=== PATIENT | male | born 1990 | race African-American/Black ===

== ENCOUNTER 2018-09-15 08:11 | Observation (INO) ==
[2018-09-15] MEDS ORDERED: Sod Chloride 0.9% Inj 1,000 ML IV.SIG ONE (08:21)
[2018-09-15] MEDS ORDERED: Famotidine PF Inj 20 MG/2 ML Vial IV.PUSH ONE (08:21)
[2018-09-15] MEDS ORDERED: Morphine Inj 4 MG/ML Vial IV.PUSH ONE (08:21)
[2018-09-15] MEDS ORDERED: Hydrocortisone Sod Succinate 100 MG Vial IV.PUSH ONE (08:24)
--- NOTE | 2018-09-15 08:33 | ED ---
HPI General Chief Complaint: Abdominal Pain Stated Complaint: Abd Pain Time Seen by Provider: 09/15/18 08:20 Source: patient and EMS Mode of arrival: EMS Limitations: no limitations History of Present Illness HPI narrative: 28-year-old male complains of abdominal pain with nausea vomiting. Patient states that symptoms started 2 days ago. Patient states the pain is cramping pain sharp pain diffuse over the abdomen. Patient denies any pain radiation. Patient states that he has intermittent nausea vomiting with the pain. Patient denies any diarrhea. Patient denies dysuria frequency. Patient denies fever chills. Patient denies any back pain. 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 Patient denies any alcohol or drug abuse. Patient's mother states the patient has history of noncompliant with his medications. complaint: Reports abdominal pain Onset (ago): day(s) Pain Consistency: constant Location: Reports diffuse Severity: moderate Severity scale (1-10): 7 Quality: Reports cramping and sharp Radiation: Reports none Migration to: Reports no migration Relieving factors: nothing Exacerbating factors: nothing Associated symptoms: Reports nausea and vomiting Related Data Home Medications Medication Instructions Recorded Confirmed prednisone 1 mg PO DAILY 09/15/18 09/15/18 Allergies Allergy/AdvReac Type Severity Reaction Status Date / Time No Known Allergies Allergy Uncoded 02/20/12 02:07 Review of Systems ROS: all other systems reviewed are negative [facility] Medical History Medical History Ronan disease (Acute) Jason's disease (Acute) Social History Social History Substance History: No History of Abuse Second Hand Smoke Exposure: No Smoking Status: Never smoker How Often Do You Have a Drink Containing Alcohol: 2 to 4 times a month Recent Travel in [facility] within the Last 8 Weeks: No Recent Out of Country Travel within the Last 8 Weeks: No Immunization History Tetanus Immunization: <5 Years Exam Narrative Exam Narrative: GENERAL: Well-nourished, well-developed patient. SKIN: Focused skin assessment warm/dry. HEAD: Normocephalic. EYES: No scleral icterus. No injection or drainage. NECK: Supple, trachea midline. No JVD or lymphadenopathy. CARDIOVASCULAR: Regular rate and rhythm without murmurs, gallops, or rubs. RESPIRATORY: Breath sounds equal bilaterally. No accessory muscle use. GASTROINTESTINAL: Abdomen soft, nondistended. Patient has moderate tenderness diffuse over the abdomen no rebound tenderness. No mass. MUSCULOSKELETAL: No cyanosis, or edema. BACK: Nontender without obvious deformity. No CVA tenderness. Neurologic exam normal. Course Initial Documented Vital Signs Temperature 97.7 F 09/15/18 08:22 Pulse Rate 118 H 09/15/18 08:22 Respiratory Rate 18 09/15/18 08:22 Blood Pressure 110/59 L 09/15/18 08:22 Pulse Oximetry 99 09/15/18 08:22 Last Documented Vital Signs Temperature 97.7 F 09/15/18 08:22 Pulse Rate 118 H 09/15/18 08:22 Respiratory Rate 18 09/15/18 08:22 Blood Pressure 110/59 L 09/15/18 08:22 Pulse Oximetry 98 09/15/18 08:25 Medical Decision Making MDM Narrative Medical decision making narrative: 28-year-old male with diffuse abdominal pain , nausea vomiting. History of Elmore's disease and Jason. Normal saline solution 1 L IV bolus. Morphine 2 mg IV. Zofran 4 mg IV. Pepcid 20 mg IV. Hydrocortisone 100 mg IV. Synthroid 125 mcg p.o. given. Medical Screen Exam Complete: Yes Emergency Medical Condition: Yes Differential Diagnosis Differential Diagnosis: Differential diagnosis including gastroenteritis, gastritis, PUD, pancreatitis, cholecystitis, colitis, UTI, pyelonephritis, nephrolithiasis. Lab Data Lab results reviewed: Yes I reviewed the patient's lab results. Result diagrams: 09/15/18 08:25 09/15/18 08:25 Lab Results 09/15/18 09/15/18 09/15/18 Range/Units 08:25 08:25 08:25 WBC 17.6 H (4.0-11.0) th/mm3 RBC 5.53 (4.50-5.90) mil/mm3 Hgb 16.4 (13.0-17.0) gm/dL Hct 46.8 (39.0-51.0) % MCV 84.6 (80.0-100.0) fL MCH 29.6 (27.0-34.0) pg MCHC 34.9 (32.0-36.0) % RDW 13.0 (11.6-17.2) % Plt Count 165 (150-450) th/mm3 MPV 9.8 (7.0-11.0) fL Neut % (Auto) 63.7 (16.0-70.0) % Lymph % (Auto) 23.2 (9.0-44.0) % Stanton % (Auto) 10.3 H (0.0-8.0) % Eos % (Auto) 2.5 (0.0-4.0) % Baso % (Auto) 0.3 (0.0-2.0) % Neut # (Auto) 11.2 H (1.8-7.7) th/mm3 Lymph # (Auto) 4.1 (1.0-4.8) th/mm3 Stanton # (Auto) 1.8 H (0.0-0.9) th/mm3 Eos # (Auto) 0.4 (0.0-0.4) th/mm3 Baso # (Auto) 0.1 (0.0-0.2) th/mm3 WBC Differential . Differential Comment Auto diff final Sodium 130 L (136-145) meq/L Potassium 5.1 (3.5-5.1) meq/L Chloride 93 L (98-107) meq/L Carbon Dioxide 13.6 L (21.0-32.0) meq/L Anion Gap 23 H (5-15) meq/L BUN 36 H (7-18) mg/dL Creatinine 2.17 H (0.60-1.30) mg/dL Estimated GFR 44 L (>89) mL/min Random Glucose 107 H (74-106) mg/dL Calcium 9.7 (8.5-10.1) mg/dL Total Bilirubin 1.5 H (0.2-1.0) mg/dL AST 34 (15-37) U/L ALT 22 (12-78) U/L Alkaline Phosphatase 76 (45-117) U/L Total Protein 8.8 H (6.4-8.2) g/dL Albumin 4.6 (3.4-5.0) g/dL Lipase 85 (73-393) U/L TSH 54.800 H (0.358-3.740) uIU/mL Cortisol 2.2 mcg/dL Imaging Data Radiologist's impression: Abdomen/Pelvis CT 09/15/18 08:21 CONCLUSION: 1. 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 2. No acute CT findings in the abdomen or pelvis. Discharge Plan Discharge Disposition Patient Disposition: 30 Still Patient Discharge Details Diagnosis: Abdominal pain, Acute hyponatremia, Metabolic acidosis, Acute dehydration, Hypothyroidism Physicians Team ED Provider: Timoteo Hector Primary Care Provider: Primary Care NoaiEstefany Rxs /Orders / Referrals /Forms Prescriptions: No Action prednisone 1 mg Tablet 1 mg PO DAILY RF: 0 Discharge Interventions Interventions: Vital Signs Last Done: 09/15/18 08:22 Status ED Status: With Doctor
[2018-09-15 08:50] LABS: Baso # (Auto) 0.1 th/mm3 (0.0-0.2); Baso % (Auto) 0.3 % (0.0-2.0); Eos # (Auto) 0.4 th/mm3 (0.0-0.4); Eos % (Auto) 2.5 % (0.0-4.0); Hematocrit 46.8 % (39.0-51.0); Hemoglobin 16.4 gm/dL (13.0-17.0); Lymph # (Auto) 4.1 th/mm3 (1.0-4.8); Lymph % (Auto) 23.2 % (9.0-44.0); Mean Corpuscular HGB Conc 34.9 % (32.0-36.0); Mean Corpuscular Hemoglobin 29.6 pg (27.0-34.0); Mean Corpuscular Volume 84.6 fL (80.0-100.0); Mean Platelet Volume 9.8 fL (7.0-11.0); Mono # (Auto) 1.8 th/mm3 (0.0-0.9); Mono % (Auto) 10.3 % (0.0-8.0); Neut # (Auto) 11.2 th/mm3 (1.8-7.7); Neut % (Auto) 63.7 % (16.0-70.0); Platelet Count 165 th/mm3 (150-450); Red Blood Count 5.53 mil/mm3 (4.50-5.90); White Blood Count 17.6 th/mm3 (4.0-11.0)
[2018-09-15 09:10] LABS: Alanine Aminotransferase 22 U/L (12-78)
[2018-09-15 09:19] LABS: Alkaline Phosphatase 76 U/L (45-117); Total Protein 8.8 g/dL (6.4-8.2)
[2018-09-15 09:25] LABS: Albumin 4.6 g/dL (3.4-5.0); Anion Gap 23 meq/L (5-15); Blood Urea Nitrogen 36 mg/dL (7-18); Calcium 9.7 mg/dL (8.5-10.1); Carbon Dioxide 13.6 meq/L (21.0-32.0); Chloride 93 meq/L (98-107); Glomerular Filtration Rate 44 mL/min (>89); Glucose,Random 107 mg/dL (74-106); Lipase 85 U/L (73-393)
[2018-09-15 09:26] LABS: Aspartate Aminotransferase 34 U/L (15-37); Potassium 5.1 meq/L (3.5-5.1); Sodium 130 meq/L (136-145)
[2018-09-15] MEDS ORDERED: Sod Chloride 0.9% Inj 1,000 ML IV.CONT SCH (10:45)
--- NOTE | 2018-09-15 11:14 | CT ---
EXAM DATE: 09/15/2018 10:59 AM EDT AGE/SEX: 28 years / Male INDICATIONS: Abdomen pain, nausea and vomiting 3 days CLINICAL DATA: This is the patient's initial encounter. Patient reports that signs and symptoms have been present for 3 days and indicates a pain score of 7/10. MEDICAL/SURGICAL HISTORY: . Jason's disease, Ronan disease None. RADIATION DOSE: 6.64 CTDI (mGy) COMPARISON: No prior exams available for comparison. TECHNIQUE: Multiple contiguous axial images were obtained through the abdomen. Images were obtained using multiple row detector helical technique. Using automated exposure control and adjustment of the mA and/or kV according to patient size, radiation dose was kept as low as reasonably achievable to o btain optimal diagnostic quality images. DICOM format image data is available electronically for rev iew and comparison. FINDINGS: Lower Lungs: The visualized lower lungs are clear. Liver: The liver has a homogeneous density without space-occupying lesion. There is no dilation of th e biliary tree. Spleen: Homogeneous density without enlargement. Pancreas: Unremarkable without mass or calcification. Kidneys: Normal in size and shape. No evidence of mass or hydronephrosis. Adrenal Glands: Unremarkable. Aorta: The aorta and proximal iliac vessels are grossly unremarkable without aneurysmal dilation. Bowel/Mesentery: The bowel loops are grossly unremarkable. The cecum and sigmoid colon have a normal configuration. Abdominal Wall: Intact. Retroperitoneum: No evidence of adenopathy in the retrocrural, para-aortic, or deep pelvic regions. Bladder: Contours are smooth. Reproductive Organs: There is a soft tissue density structure in the left inguinal canal which looks like an undescended testicle Inguinal: Apparent incompletely descended testicle in the left inguinal canal Bony Structures: Unremarkable. CONCLUSION: 1. 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 2. No acute CT findings in the abdomen or pelvis. Electronically signed by: eTd Porras MD 09/15/2018 11:13 AM EDT
[2018-09-15] MEDS ORDERED: Levothyroxine 125 MCG Tablet PO ONE (12:29)
[2018-09-15] MEDS ORDERED: Acetaminophen 325 MG Tablet PO PRN (12:41)
--- NOTE | 2018-09-15 12:57 | P.HP ---
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 Patient presents emergency department with reported 3 days of nausea and vomiting associated with (7/10) diffuse cramping stabbing diffuse abdominal pain. Patient denies any pain radiation. Patient states that he has intermittent nausea vomiting with the pain. Bright red blood or coffee-ground emesis. Patient denies any diarrhea, dysuria, increased urinary frequency, fever/chills, back pain. Patient is supposed to be on levothyroxine and cortisone pill. Patient relocated to this area 2 years ago and has not established with an bartender server in this area. Patient reports he is not good with taking his medications. Patient reports that he often does not take his medication for weeks at a time. Patient is unable to recall his medications or dosages. Patient reports that he is feeling much better. He in sitting up on the edge of the bed eating lunch. WBC 17.6, Na 130, K 5.1, Carbon dioxide 13.6, Anion gap 23, BUN 36, Creatinine 2.17, Estimated GFR 44, total Bilirubin 1.5, TSH 54.8, Cortisol 2.2 CT abd/pelvis reviewed and reveals: 1. 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 2. No acute CT findings in the abdomen or pelvis. PMH: Calverton's disease and Jason's disease PSxH: left elbow pinned stitches above left eye FMH: reviewed and noncontributory Social history: rare ETOH use Denies current tobacco use quit smoking 1 month ago occasional THC use, denies other street drugs - Diagnosis (1) Metabolic acidosis (2) Abdominal pain (3) Acute hyponatremia (4) Acute dehydration (5) Hypothyroidism Review of Systems All other systems reviewed negative except as stated in HPI PMFSH - History History Provided By: Patient - Medical History Medical History: Medical History (Last Reviewed 09/15/18 @ 08:32 by Timoteo Hector MD) Ronan disease Jason's disease - Tobacco History Second Hand Smoke Exposure: No Tobacco Use In Past 30 Days: No Smoking Status: Never smoker - Alcohol History How Often Do You Have a Drink Containing Alcohol: 2 to 4 times a month - Substance Use History Substance History: No History of Abuse - Travel History Recent Travel in the [place] Within the Last 8 Weeks: No Recent Travel Out of the Country Within the Last 8 Weeks: No - Immunization History Tetanus Immunization: <5 Years Medications and Allergies Allergies Allergy/AdvReac Type Severity Reaction Status Date / Time No Known Allergies Allergy Uncoded 02/20/12 02:07 Home Medications Medication Instructions Recorded Confirmed Type fludrocortisone 0.1 mg PO DAILY 09/15/18 09/15/18 History levothyroxine 88 mcg PO DAILY 09/15/18 09/15/18 History prednisone 5 mg PO DAILY 09/15/18 09/15/18 History Active Medications: Active Medications Acetaminophen (Tylenol) 650 mg PO Q4H PRN PRN Reason: Temp > 100.4 Al Hydroxide/Mg Hydroxide (Milk Of Magnesia Liq) 30 ml PO Q12H PRN PRN Reason: Mild Constipation Sodium Chloride (Ns Inj) 1,000 mls @ 125 mls/hr IV.CONT .Q8H BRYNN Last Admin: 09/15/18 10:33 Dose: 125 mls/hr Ondansetron HCl (Zofran Inj) 4 mg IV.PUSH Q6H PRN PRN Reason: NAUSEA OR VOMITING Senna/Docusate Sodium (Nena-Colace) 1 tab PO BID BRYNN Temazepam (Restoril) 15 mg PO HS PRN PRN Reason: INSOMNIA Exam Vital signs: Vital Signs 09/15/18 08:22 09/15/18 08:25 Temperature 97.7 F Pulse Rate 118 H Respiratory Rate 18 Blood Pressure 110/59 L Pulse Oximetry 99 98 Intake & Output 09/14/18 09/15/18 09/15/18 18:59 06:59 18:59 Weight 63.503 kg Narrative: GENERAL: This is an extremely thin, well-developed patient, in no apparent distress. CARDIOVASCULAR: Regular rate and rhythm RESPIRATORY: Clear to auscultation. Breath sounds equal bilaterally. GASTROINTESTINAL: Abdomen soft, nondistended. Patient has mild tenderness diffuse over the abdomen no rebound tenderness. MUSCULOSKELETAL: Extremities without clubbing, cyanosis, or edema. NEURO: Alert & Oriented x4 to person, place, time, situation. Moves all ext x4 Results - Labs CBC & Chem 7: 09/15/18 08:25 09/15/18 08:25 Labs: Laboratory Results - last 24 hr 09/15/18 09/15/18 09/15/18 08:25 08:25 08:25 WBC 17.6 H RBC 5.53 Hgb 16.4 Hct 46.8 MCV 84.6 MCH 29.6 MCHC 34.9 RDW 13.0 Plt Count 165 MPV 9.8 Neut % (Auto) 63.7 Lymph % (Auto) 23.2 Kane % (Auto) 10.3 H Eos % (Auto) 2.5 Baso % (Auto) 0.3 Neut # (Auto) 11.2 H Lymph # (Auto) 4.1 Kane # (Auto) 1.8 H Eos # (Auto) 0.4 Baso # (Auto) 0.1 WBC Differential . Differential Comment Auto diff final Sodium 130 L Potassium 5.1 Chloride 93 L Carbon Dioxide 13.6 L Anion Gap 23 H BUN 36 H Creatinine 2.17 H Estimated GFR 44 L Random Glucose 107 H Calcium 9.7 Total Bilirubin 1.5 H AST 34 ALT 22 Alkaline Phosphatase 76 Total Protein 8.8 H Albumin 4.6 Lipase 85 TSH 54.800 H Cortisol 2.2 - Imaging Impressions Abdomen/Pelvis CT 09/15/18 08:21 CONCLUSION: 1. 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 2. No acute CT findings in the abdomen or pelvis. Caprini VTE Risk Assessment Caprini VTE Risk Assessment: No/Low Risk (score <= 1) Caprini Risk Assessment Model: Point Value = 1 Point Value = 2 Point Value = 3 Point Value = 5 Age 41-60 Minor surgery BMI > 25 kg/m2 Swollen legs Varicose veins or History of unexplained or recurrent spontaneous Oral contraceptives or hormone replacement Sepsis (< 1 month) Serious lung disease, including pneumonia (< 1 month) Abnormal pulmonary function Acute myocardial infarction Congestive heart failure (< 1 month) History of inflammatory bowel disease Medical patient at bed rest Age 61-74 Arthroscopic surgery Major open surgery (> 45 min) Laparoscopic surgery (> 45 min) Malignancy Confined to bed (> 72 hours) Immobilizing plaster cast Central venous access Age >= 75 History of VTE Family history of VTE Factor V Leiden Prothrombin [id number] Lupus anticoagulant Anticardiolipin antibodies Elevated serum homocysteine Heparin-induced thrombocytopenia Other congenital or acquired thrombophilia Stroke (< 1 month) Elective arthroplasty Hip, pelvis, or leg fracture Acute spinal cord injury (< 1 month) Prophylaxis Regimen: Total Risk Factor Score Risk Level Prophylaxis Regimen 0-1 Low Early ambulation 2 Moderate Order ONE of the following: *Sequential Compression Device (SCD) *Heparin 5000 units SQ BID 3-4 Higher Order ONE of the following medications: *Heparin 5000 units SQ TID *Enoxaparin/Lovenox 40 mg SQ daily (WT < 150 kg, CrCl > 30 mL/min) *Enoxaparin/Lovenox 30 mg SQ daily (WT < 150 kg, CrCl > 10-29 mL/min) *Enoxaparin/Lovenox 30 mg SQ BID (WT < 150 kg, CrCl > 30 mL/min) AND/OR *Sequential Compression Device (SCD) 5 or more Highest Order ONE of the following medications: *Heparin 5000 units SQ TID (Preferred with Epidurals) *Enoxaparin/Lovenox 40 mg SQ daily (WT < 150 kg, CrCl > 30 mL/min) *Enoxaparin/Lovenox 30 mg SQ daily (WT < 150 kg, CrCl > 10-29 mL/min) *Enoxaparin/Lovenox 30 mg SQ BID (WT < 150 kg, CrCl > 30 mL/min) AND *Sequential Compression Device (SCD) Assessment and Plan - Assessment (1) Metabolic acidosis Code(s): E87.2 - Acidosis Status: Acute Plan: This a 28-year-old male patient with a 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 Patient presents emergency department with reported 3 days of nausea and vomiting associated with (7/10) diffuse cramping stabbing diffuse abdominal pain. Patient denies any pain radiation. Patient states that he has intermittent nausea vomiting with the pain. Bright red blood or coffee-ground emesis. Patient denies any diarrhea, dysuria, increased urinary frequency, fever/chills, back pain. Patient is supposed to be on levothyroxine and cortisone pill. Patient relocated to this area 2 years ago and has not established with an bartender server in this area. Patient reports he is not good with taking his medications. Patient reports that he often does not take his medication for weeks at a time. Patient is unable to recall his medications or dosages. Patient reports that he is feeling much better. He in sitting up on the edge of the bed eating lunch. Metabolic Acidosis N/V Abd pain ? gastroenteritis tox screen flu screen UA pending WBC 17.6, Na 130, K 5.1, Carbon dioxide 13.6, Anion gap 23, BUN 36, Creatinine 2.17, Estimated GFR 44, total Bilirubin 1.5, TSH 54.8, Cortisol 2.2 CT abd/pelvis reviewed and reveals: 1. 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 2. No acute CT findings in the abdomen or pelvis. NS sodium bicarb at 125 ml/H Supportive care recheck CBC and CMP in AM Hyponatremia Na 130 likely secondary to N/V recheck in AM DENISE Dehydration likely related to dehydration IVF recheck in AM Jason disease Patient is noncompliance with medications. Patient reports he is suppose to take a, "thyroid medication," but is not sure of the name or dose. Patient endorses that he has not been taking his, "thyroid medication." TSH 54.8 Patient given Levothyroxine 125mcg PO in the ER patient started on home Levothyroxine 88 mcg daily Calverton's disease with acute illness Patient is noncompliance with medications. Patient reports he is suppose to take a prednisone 1 mg PO daily, but is often noncompliant. Patient given Solucortef 100mg IV x 1 in ER Continue patient's home prednisone 5 mg PO daily and fludrocortisone 1 mg PO daily Incompletely descended testicle CT abd/pelvis reviewed and reveals: 1. 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 2. No acute CT findings in the abdomen or pelvis. Patient will need outpatient follow up with Urology DVT prophylaxis with SCDs (2) Abdominal pain Code(s): R10.9 - Unspecified abdominal pain Status: Acute (3) Acute hyponatremia Code(s): E87.1 - Hypo-osmolality and hyponatremia Status: Acute (4) Acute dehydration Code(s): E86.0 - Dehydration Status: Acute (5) Hypothyroidism Code(s): E03.9 - Hypothyroidism, unspecified Status: Acute <Lalo Burgess - Last Filed: 09/15/18 15:51> History of Present Illness Primary Care Physician: No Primary Care Physician - Diagnosis (1) Metabolic acidosis (2) Abdominal pain (3) Acute hyponatremia (4) Acute dehydration (5) Hypothyroidism [facility] - Medical History Medical History: Medical History (Last Reviewed 09/15/18 @ 08:32 by Timoteo Hector MD) Calverton disease Jason's disease Medications and Allergies Active Medications: Active Medications Acetaminophen (Tylenol) 650 mg PO Q4H PRN PRN Reason: Temp > 100.4 Hydrocodone Bitart/Acetaminophen ([place] 5/325) 1 tab PO Q4H PRN PRN Reason: PAIN SCALE 1 TO 10 Last Admin: 09/15/18 13:13 Dose: 1 tab Al Hydroxide/Mg Hydroxide (Milk Of Magnyonis Linahed) 30 ml PO Q12H PRN PRN Reason: Mild Constipation Fludrocortisone Acetate (Florinef) 0.1 mg PO DAILY [facility] Sodium Chloride (Ns Inj) 1,000 mls @ 125 mls/hr IV.CONT .Q8H [facility] Last Admin: 09/15/18 15:21 Dose: 125 mls/hr Sodium Bicarbonate 100 meq/ (Sodium Chloride) 1,000 mls @ 125 mls/hr IV.CONT .Q8H [facility] Last Admin: 09/15/18 13:32 Dose: 125 mls/hr Levothyroxine Sodium (Synthroid) 88 mcg PO DAILY@0600 [facility] Ondansetron HCl (Zofran Inj) 4 mg IV.PUSH Q6H PRN PRN Reason: NAUSEA OR VOMITING Prednisone (Deltasone) 5 mg PO DAILY [facility] Senna/Docusate Sodium (Nena-Colace) 1 tab PO BID BRYNN Temazepam (Restoril) 15 mg PO HS PRN PRN Reason: INSOMNIA Exam Vital signs: Vital Signs 09/15/18 08:22 09/15/18 08:25 09/15/18 13:13 Temperature 97.7 F Pulse Rate 118 H 104 H Respiratory Rate 18 18 Blood Pressure 110/59 L 111/65 Pulse Oximetry 99 98 99 09/15/18 14:33 09/15/18 15:30 Temperature 98.6 F Pulse Rate 84 Respiratory Rate 18 16 Blood Pressure 106/70 Pulse Oximetry 100 Intake & Output 09/14/18 09/15/18 09/15/18 18:59 06:59 18:59 Intake Total 1500 / 1500 Balance 1500 / 1500 Weight 63.503 kg Intake: IV 1000 / 1000 NS Inj 1,000 ML @ Wide Open IV. 1000 / 1000 SIG BOLUS ONE Rx#:[id number] Oral 500 / 500 Results - Labs CBC & Chem 7: 09/15/18 08:25 09/15/18 08:25 Labs: Laboratory Results - last 24 hr 09/15/18 09/15/18 09/15/18 08:25 08:25 08:25 WBC 17.6 H RBC 5.53 Hgb 16.4 Hct 46.8 MCV 84.6 MCH 29.6 MCHC 34.9 RDW 13.0 Plt Count 165 MPV 9.8 Neut % (Auto) 63.7 Lymph % (Auto) 23.2 Kane % (Auto) 10.3 H Eos % (Auto) 2.5 Baso % (Auto) 0.3 Neut # (Auto) 11.2 H Lymph # (Auto) 4.1 Kane # (Auto) 1.8 H Eos # (Auto) 0.4 Baso # (Auto) 0.1 WBC Differential . Differential Comment Auto diff final Sodium 130 L Potassium 5.1 Chloride 93 L Carbon Dioxide 13.6 L Anion Gap 23 H BUN 36 H Creatinine 2.17 H Estimated GFR 44 L Random Glucose 107 H Calcium 9.7 Total Bilirubin 1.5 H AST 34 ALT 22 Alkaline Phosphatase 76 Total Protein 8.8 H Albumin 4.6 Lipase 85 TSH 54.800 H Cortisol 2.2 Urine Opiates Screen Ur Barbiturates Screen Ur Amphetamines Screen U Benzodiazepines Scrn Urine Cocaine Screen U Cannabinoids Screen 09/15/18 13:16 WBC RBC Hgb Hct MCV MCH MCHC RDW Plt Count MPV Neut % (Auto) Lymph % (Auto) Kane % (Auto) Eos % (Auto) Baso % (Auto) Neut # (Auto) Lymph # (Auto) Kane # (Auto) Eos # (Auto) Baso # (Auto) WBC Differential Differential Comment Sodium Potassium Chloride Carbon Dioxide Anion Gap BUN Creatinine Estimated GFR Random Glucose Calcium Total Bilirubin AST ALT Alkaline Phosphatase Total Protein Albumin Lipase TSH Cortisol Urine Opiates Screen Neg Ur Barbiturates Screen Neg Ur Amphetamines Screen Neg U Benzodiazepines Scrn Neg Urine Cocaine Screen Neg U Cannabinoids Screen Pos H - Imaging Impressions Chest X-Ray 09/15/18 00:00 CONCLUSION: Questionable small area of atelectasis or bronchitis in the right upper lobe overlying the right fifth rib. The rest of the lungs are clear Abdomen/Pelvis CT 09/15/18 08:21 CONCLUSION: 1. 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 2. No acute CT findings in the abdomen or pelvis. Caprini VTE Risk Assessment Caprini Risk Assessment Model: Point Value = 1 Point Value = 2 Point Value = 3 Point Value = 5 Age 41-60 Minor surgery BMI > 25 kg/m2 Swollen legs Varicose veins or History of unexplained or recurrent spontaneous Oral contraceptives or hormone replacement Sepsis (< 1 month) Serious lung disease, including pneumonia (< 1 month) Abnormal pulmonary function Acute myocardial infarction Congestive heart failure (< 1 month) History of inflammatory bowel disease Medical patient at bed rest Age 61-74 Arthroscopic surgery Major open surgery (> 45 min) Laparoscopic surgery (> 45 min) Malignancy Confined to bed (> 72 hours) Immobilizing plaster cast Central venous access Age >= 75 History of VTE Family history of VTE Factor V Leiden Prothrombin [id number] Lupus anticoagulant Anticardiolipin antibodies Elevated serum homocysteine Heparin-induced thrombocytopenia Other congenital or acquired thrombophilia Stroke (< 1 month) Elective arthroplasty Hip, pelvis, or leg fracture Acute spinal cord injury (< 1 month) Prophylaxis Regimen: Total Risk Factor Score Risk Level Prophylaxis Regimen 0-1 Low Early ambulation 2 Moderate Order ONE of the following: *Sequential Compression Device (SCD) *Heparin 5000 units SQ BID 3-4 Higher Order ONE of the following medications: *Heparin 5000 units SQ TID *Enoxaparin/Lovenox 40 mg SQ daily (WT < 150 kg, CrCl > 30 mL/min) *Enoxaparin/Lovenox 30 mg SQ daily (WT < 150 kg, CrCl > 10-29 mL/min) *Enoxaparin/Lovenox 30 mg SQ BID (WT < 150 kg, CrCl > 30 mL/min) AND/OR *Sequential Compression Device (SCD) 5 or more Highest Order ONE of the following medications: *Heparin 5000 units SQ TID (Preferred with Epidurals) *Enoxaparin/Lovenox 40 mg SQ daily (WT < 150 kg, CrCl > 30 mL/min) *Enoxaparin/Lovenox 30 mg SQ daily (WT < 150 kg, CrCl > 10-29 mL/min) *Enoxaparin/Lovenox 30 mg SQ BID (WT < 150 kg, CrCl > 30 mL/min) AND *Sequential Compression Device (SCD) Assessment and Plan - Assessment (1) Metabolic acidosis Code(s): E87.2 - Acidosis Status: Acute (2) Abdominal pain Code(s): R10.9 - Unspecified abdominal pain Status: Acute (3) Acute hyponatremia Code(s): E87.1 - Hypo-osmolality and hyponatremia Status: Acute (4) Acute dehydration Code(s): E86.0 - Dehydration Status: Acute (5) Hypothyroidism Code(s): E03.9 - Hypothyroidism, unspecified Status: Acute - Attending Attestation The exam, history, and the medical decision-making described in the above note were completed with the assistance of the mid-level provider. I reviewed and agree with the findings presented. I attest that I had a [id number] encounter with the patient on the same day, and personally performed and documented my assessment and findings in the medical record. Patient examined. Assessment and plan formulated with Rizwana Recio PA-C. I agree with the above. Case d/w pt at bedside. Mr. Echevarria does NOT regularly take his medications. Pt's father provided name & doses of previously prescribed medications. Pt has NOT established himself with a PCP or Hydraulic Rock[employer] Operator since moving to [facility] from [facility] 2 years ago. Previous medications resumed. IVFs overnight. If electrolytes/CO2/renal fxn normalize on AM labs, then pt will be discharged to home 09/16/18 Pt needs to establish with an Hydraulic Rockbreaker Operator locally & this was d/w Mr. Echevarria. 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
[2018-09-15] MEDS: Sodium Bicarbonate 8.4% Inj 100 MEQ in Sod Chloride 0.9% Inj 900 ML IV.CONT SCH ×2 (13:32→22:34)
[2018-09-15 13:41] LABS: Amphetamine Screen,Urine Neg (Neg); Barbiturate Screen,Urine Neg (Neg); Cannabinoid Screen,Urine Pos (Neg); Cocaine Screen,Urine Neg (Neg)
[2018-09-15 13:46] LABS: Opiate Screen,Urine Neg (Neg)
--- NOTE | 2018-09-15 13:46 | XR ---
EXAM DATE: 09/15/2018 1:33 PM EDT AGE/SEX: 28 years / Male INDICATIONS: Cough CLINICAL DATA: This is the patient's initial encounter. Patient reports that signs and symptoms have been present for 1 day and indicates a pain score of 0/10. MEDICAL/SURGICAL HISTORY: . Jason's disease, Ronan disease None. COMPARISON: [facility] [place]ST SINGLE AP, 02/20/2012. . FINDINGS: A single AP view of the chest demonstrates the lungs to be symmetrically aerated without evidence of mass, or effusion. Small flattened area consolidation in the right upper lobe could be a small area o f bronchitis. The cardiomediastinal contours are unremarkable. Osseous structures are intact. CONCLUSION: Questionable small area of atelectasis or bronchitis in the right upper lobe overlying the right fift h rib. The rest of the lungs are clear Electronically signed by: Yao Field MD 09/15/2018 1:44 PM EDT
[2018-09-15] MEDS: Sod Chloride 0.9% Inj 1,000 ML IV.CONT SCH ×3 (15:21→22:35)
[2018-09-15 20:18] LABS: Bilirubin,Urine Negative (Negative); Clarity,Urine Clear (Clear); Color,Urine Straw (Yellw/Straw); Glucose,Urine (UA) Negative (Negative); Leukocyte Esterase,Urine Negative (Negative); Nitrite,Urine Negative (Negative)
[2018-09-15] MEDS ORDERED: Temazepam 15 MG Capsule PO PRN (21:00)
[2018-09-15] MEDS: Senna/Docusate Sodium 8.6/50 MG Tablet PO SCH (21:43)
[2018-09-16] MEDS: Sod Chloride 0.9% Inj 1,000 ML IV.CONT SCH (03:52)
[2018-09-16 05:38] LABS: Baso % (Auto) 0.2 % (0.0-2.0); Eos # (Auto) 0.3 th/mm3 (0.0-0.4); Eos % (Auto) 2.5 % (0.0-4.0); Hematocrit 32.8 % (39.0-51.0); Hemoglobin 11.7 gm/dL (13.0-17.0); Lymph # (Auto) 1.9 th/mm3 (1.0-4.8); Lymph % (Auto) 19.3 % (9.0-44.0); Mean Corpuscular HGB Conc 35.8 % (32.0-36.0); Mean Corpuscular Hemoglobin 29.6 pg (27.0-34.0); Mean Corpuscular Volume 82.9 fL (80.0-100.0); Mean Platelet Volume 9.7 fL (7.0-11.0); Mono # (Auto) 1.1 th/mm3 (0.0-0.9); Mono % (Auto) 11.4 % (0.0-8.0); Neut # (Auto) 6.6 th/mm3 (1.8-7.7); Neut % (Auto) 66.6 % (16.0-70.0); Platelet Count 116 th/mm3 (150-450); Red Blood Count 3.96 mil/mm3 (4.50-5.90); White Blood Count 9.8 th/mm3 (4.0-11.0)
[2018-09-16] MEDS ORDERED: Levothyroxine 88 MCG Tablet PO SCH (06:00)
[2018-09-16 06:11] LABS: Alanine Aminotransferase 15 U/L (12-78); Albumin 3.3 g/dL (3.4-5.0); Anion Gap 8 meq/L (5-15); Aspartate Aminotransferase 18 U/L (15-37); Blood Urea Nitrogen 18 mg/dL (7-18); Calcium 7.8 mg/dL (8.5-10.1); Chloride 102 meq/L (98-107); Glomerular Filtration Rate Greater Than 89 mL/min (>89); Glucose,Random 131 mg/dL (74-106); Potassium 3.6 meq/L (3.5-5.1); Sodium 135 meq/L (136-145)
[2018-09-16 06:16] LABS: Alkaline Phosphatase 52 U/L (45-117); Total Protein 6.3 g/dL (6.4-8.2)
[2018-09-16] MEDS: Sodium Bicarbonate 8.4% Inj 100 MEQ in Sod Chloride 0.9% Inj 900 ML IV.CONT SCH (07:54)
--- NOTE | 2018-09-16 08:01 | P.DS ---
Documented by User: DANY Santana 09/16/18 10:02 DS: Providers Date of admission: 09/15/18 13:14 Primary care physician: Dr. 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 Patient presents emergency department with reported 3 days of nausea and vomiting associated with (05/28) diffuse cramping stabbing diffuse abdominal pain. Patient denies any pain radiation. Patient states that he has intermittent nausea vomiting with the pain. Bright red blood or coffee-ground emesis. Patient denies any diarrhea, dysuria, increased urinary frequency, fever/chills, back pain. Patient is supposed to be on levothyroxine and cortisone pill. Patient relocated to this area 2 years ago and has not established with an seam taper machine in this area. Patient reports he is not good with taking his medications. Patient reports that he often does not take his medication for weeks at a time. Patient is unable to recall his medications or dosages. Patient reports that he is feeling much better. He in sitting up on the edge of the bed eating lunch. Metabolic Acidosis - resolved N/V - resolved Abd pain - resolved ? gastroenteritis tox screen - positive for cannabinoids flu screen UA pending - negative nitrates, negative leukocyte Esterase, no culture indicated WBC 17.6, Na 130, K 5.1, Carbon dioxide 13.6, Anion gap 23, BUN 36, Creatinine 2.17, Estimated GFR 44, total Bilirubin 1.5, TSH 54.8, Cortisol 2.2 repeat labs this AM (09/16) - WBC 9.8, Na 135, K 3.6, carbon dioxide 25.0, anion gap 8, BUN 18, creatinine 1.08, estimated GFR 89, total bilirubin 1.0 CT abd/pelvis reviewed and reveals: 1. 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 2. No acute CT findings in the abdomen or pelvis. NS sodium bicarb at 125 ml/H initially then DC'd 09/16 Hyponatremia - resolved Na 130 -> 135 likely secondary to N/V DENISE - improving Dehydration likely related to dehydration IVF - initially Jason disease Patient is noncompliance with medications. Patient reports he is suppose to take a, "thyroid medication," but is not sure of the name or dose. Patient endorses that he has not been taking his, "thyroid medication." TSH 54.8 Patient given Levothyroxine 125mcg PO in the ER patient started on home Levothyroxine 88 mcg daily [place]ao's disease with acute illness Patient is noncompliance with medications. Patient reports he is suppose to take a prednisone 1 mg PO daily, but is often noncompliant. Patient given Solucortef 100mg IV x 1 in ER Continue patient's home prednisone 5 mg PO daily and fludrocortisone 1 mg PO daily Incompletely descended testicle CT abd/pelvis reviewed and reveals: 1. 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 2. No acute CT findings in the abdomen or pelvis. Patient will need outpatient follow up with Urology DVT prophylaxis with SCDs Patient no longer having N/V or abd pain. Patient reports feeling much better today. Feels ready to go home. Time Spent with Patient Total time spent providing and/or coordinating discharge services: Quality: VTE Deep Vein Thrombosis/Pulmonary Embolism Present on Admission: No Exam Narrative Exam Narrative: GENERAL: This is an extremely thin, well-developed patient, in no apparent distress. CARDIOVASCULAR: Regular rate and rhythm RESPIRATORY: Clear to auscultation. Breath sounds equal bilaterally. GASTROINTESTINAL: Abdomen soft, nondistended. non-tender no rebound tenderness. MUSCULOSKELETAL: Extremities without clubbing, cyanosis, or edema. NEURO: Alert & Oriented x4 to person, place, time, situation. Moves all ext x4 DS: Data Labs on day of discharge: Labs from last 24 hours 09/16/18 09/16/18 09/15/18 04:15 04:15 18:45 WBC 9.8 RBC 3.96 L Hgb 11.7 L D Hct 32.8 L MCV 82.9 MCH 29.6 MCHC 35.8 RDW 13.0 Plt Count 116 L MPV 9.7 Neut % (Auto) 66.6 Lymph % (Auto) 19.3 [place] % (Auto) 11.4 H Eos % (Auto) 2.5 Baso % (Auto) 0.2 Neut # (Auto) 6.6 Lymph # (Auto) 1.9 [place]linger # (Auto) 1.1 H Eos # (Auto) 0.3 Baso # (Auto) 0.0 WBC Differential . Differential Comment Auto diff final Sodium 135 L Potassium 3.6 D Chloride 102 D Carbon Dioxide 25.0 D Anion Gap 8 BUN 18 Creatinine 1.08 Estimated GFR Greater than 89 Random Glucose 131 H Calcium 7.8 L D Total Bilirubin 1.0 AST 18 ALT 15 Alkaline Phosphatase 52 Total Protein 6.3 L D Albumin 3.3 L D Lipase TSH Cortisol Urine Color Straw Urine Clarity Clear Urine pH 5.0 Ur Specific [place] 1.010 Urine Protein Negative Urine Glucose (UA) Negative Urine Ketones 20 Urine Occult Blood Negative Urine Nitrate Negative Urine Bilirubin Negative Urine Urobilinogen Less than 2 Ur Leukocyte Esterase Negative Urine WBC Less than 1 Micro UA Comment Culture not ind Ur Microscopic Review Not Reportable Urine Culture Comments Culture not ind Urine Opiates Screen Ur Barbiturates Screen Ur Amphetamines Screen U Benzodiazepines Scrn Urine Cocaine Screen U Cannabinoids Screen 09/15/18 09/15/18 09/15/18 13:16 08:25 08:25 WBC RBC Hgb Hct MCV MCH MCHC RDW Plt Count MPV Neut % (Auto) Lymph % (Auto) [place] % (Auto) Eos % (Auto) Baso % (Auto) Neut # (Auto) Lymph # (Auto) [place] # (Auto) Eos # (Auto) Baso # (Auto) WBC Differential Differential Comment Sodium 130 L Potassium 5.1 Chloride 93 L Carbon Dioxide 13.6 L Anion Gap 23 H BUN 36 H Creatinine 2.17 H Estimated GFR 44 L Random Glucose 107 H Calcium 9.7 Total Bilirubin 1.5 H AST 34 ALT 22 Alkaline Phosphatase 76 Total Protein 8.8 H Albumin 4.6 Lipase 85 TSH 54.800 H Cortisol 2.2 Urine Color Urine Clarity Urine pH Ur Specific [place] Urine Protein Urine Glucose (UA) Urine Ketones Urine Occult Blood Urine Nitrate Urine Bilirubin Urine Urobilinogen Ur Leukocyte Esterase Urine WBC Micro UA Comment Ur Microscopic Review Urine Culture Comments Urine Opiates Screen Neg Ur Barbiturates Screen Neg Ur Amphetamines Screen Neg U Benzodiazepines Scrn Neg Urine Cocaine Screen Neg U Cannabinoids Screen Pos H 09/15/18 08:25 WBC 17.6 H RBC 5.53 Hgb 16.4 Hct 46.8 MCV 84.6 MCH 29.6 MCHC 34.9 RDW 13.0 Plt Count 165 MPV 9.8 Neut % (Auto) 63.7 Lymph % (Auto) 23.2 [place] % (Auto) 10.3 H Eos % (Auto) 2.5 Baso % (Auto) 0.3 Neut # (Auto) 11.2 H Lymph # (Auto) 4.1 [place] # (Auto) 1.8 H Eos # (Auto) 0.4 Baso # (Auto) 0.1 WBC Differential . Differential Comment Auto diff final Sodium Potassium Chloride Carbon Dioxide Anion Gap BUN Creatinine Estimated GFR Random Glucose Calcium Total Bilirubin AST ALT Alkaline Phosphatase Total Protein Albumin Lipase TSH Cortisol Urine Color Urine Clarity Urine pH Ur Specific [place] Urine Protein Urine Glucose (UA) Urine Ketones Urine Occult Blood Urine Nitrate Urine Bilirubin Urine Urobilinogen Ur Leukocyte Esterase Urine WBC Micro UA Comment Ur Microscopic Review Urine Culture Comments Urine Opiates Screen Ur Barbiturates Screen Ur Amphetamines Screen U Benzodiazepines Scrn Urine Cocaine Screen U Cannabinoids Screen Impressions Chest X-Ray 09/15/18 00:00 CONCLUSION: Questionable small area of atelectasis or bronchitis in the right upper lobe overlying the right fifth rib. The rest of the lungs are clear Abdomen/Pelvis CT 09/15/18 08:21 CONCLUSION: 1. 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 2. No acute CT findings in the abdomen or pelvis. Discharge Plan Discharge Disposition Patient Disposition: 01 Discharge Home Discharge Condition Condition: Stable Discharge Order Discharge Orders: Discharge Order (Routine); Ordered 09/16/18 Ordered By: Rizwana Recio Discharge Details Anticipated Discharge Date: 09/16/18 Physicians Team ED Provider: Timoteo Hector Primary Care Provider: Primary Care Estefany Eddy Attending Provider: Lalo Burgess Rxs /Orders / Referrals /Forms Prescriptions: Continue prednisone 5 mg Tablet 5 mg PO DAILY RF: 0 levothyroxine 88 mcg Tablet 88 mcg PO DAILY RF: 0 fludrocortisone 0.1 mg Tablet 0.1 mg PO DAILY RF: 0 Referrals: Nubia Guzman MD [Physician] - See Instructions (follow up in 1 week) Cherry Kern MD [INFECTIOUS DISEASE] - See Instructions (follow up in 1 week) Moises Prajapati DO [UROLOGY] - See Instructions (follow up in 2 weeks) Stand Alone Forms: Work Release/Restrictions Status ED Status: Left Department
[2018-09-16] MEDS ORDERED: predniSONE 5 MG Tablet PO SCH (09:00)
[2018-09-16] MEDS ORDERED: predniSONE 1 MG Tablet PO SCH (09:00)
[2018-09-16] MEDS: Senna/Docusate Sodium 8.6/50 MG Tablet PO SCH (09:32)
--- NOTE | 2018-09-16 18:11 | ECG ---
Date Performed: 09/15/2018 Time Performed: 22:18:17 PTAGE: 28 years EKG: Sinus rhythm WITH SINUS ARRHYTHMIA POSSIBLE LEFT ATRIAL ENLARGEMENT NONSPECIFIC T-WAVE ABNORMALITY BORDERLINE ECG PREVIOUS TRACING : 09/14/2018 12.47 Since the previous tracing, no significant change noted DOCTOR: Kieran Montanez Interpretating Date/Time 09/16/2018 18:09:07
== END 2018-09-16 10:32 | disposition home or self-care (01) ==
LOC: NEPE 08:11 → NEDA 08:11 → NEPGCP 14:47
PROVIDERS: ADMIT Hospitalist; ATTEND Hospitalist
DX: E27.1 Primary adrenocortical insufficiency; Z91.19 Patient's noncompliance with other medical treatment and regimen; E03.8 Other specified hypothyroidism; Z91.14 Patient's other noncompliance with medication regimen; E87.1 Hypo-osmolality and hyponatremia; F12.90 Cannabis use, unspecified, uncomplicated; K52.9 Noninfective gastroenteritis and colitis, unspecified; N17.9 Acute kidney failure, unspecified; E06.3 Autoimmune thyroiditis; E87.2 Acidosis; Z79.890 Hormone replacement therapy; E86.0 Dehydration